=== PATIENT | male | born 1995 | race Caucasian/White ===

== ENCOUNTER 2019-06-07 12:18 | Emergency (ER) | payer MEDICAID ==
[~2019-06-07] VITALS: Ht 182.9 cm; Wt 90.9 kg
[2019-06-07 12:21] VITALS: BP 142/75
[2019-06-07] MEDS ORDERED: IBUP-1984 PO (12:57)
== END 2019-06-07 13:23 | disposition home or self-care (01) ==
LOC: ER 12:19
DX: S93.402A Sprain of unspecified ligament of left ankle, initial encounter (principal); Z79.1 Long term (current) use of non-steroidal anti-inflammatories (NSAID); Z60.2 Problems related to living alone; X58.XXXA Exposure to other specified factors, initial encounter; Y93.01 Activity, walking, marching and hiking; Y92.89 Other specified places as the place of occurrence of the external cause; Y99.8 Other external cause status
CPT/HCPCS: 73610; 99283